=== PATIENT | female | born 1955 | race American Indian/Alaskan Native ===

== ENCOUNTER 2017-08-17 09:09 | Emergency (ER) | payer MEDICAID ==
[2017-08-17 10:41] LABS: BUN/Creatinine Ratio 17; Basophils # (Auto) 0.1 K/mm3 (0.0-0.1); Basophils % (Auto) 0.9 % (0.0-1.8); Blood Urea Nitrogen 10 mg/dL (7-17); Calcium 8.9 mg/dL (8.4-10.2); Eosinophils # (Auto) 0.1 K/mm3 (0.0-0.4); Hematocrit 51.9 % (30.3-42.9); Hemoglobin 17.7 gm/dl (10.1-14.3); Hemolysis Index 15; Lymphocytes # (Auto) 2.5 K/mm3 (1.2-5.4); Mean Corpuscular HGB Conc 34 % (30-34); Mean Corpuscular Hemoglobin 32 pg (28-32); Mean Corpuscular Volume 95 fl (79-97); Monocytes # (Auto) 0.5 K/mm3 (0.0-0.8); Monocytes % (Auto) 6.9 % (0.0-7.3); Platelet Count 210 K/mm3 (140-440); Red Blood Count 5.45 M/mm3 (3.65-5.03); Red Cell Distribution Width 14.7 % (13.2-15.2)
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
[2017-08-17] MEDS ORDERED: NORCO 5/325 PO ONE (16:37)
[2017-08-17 18:01] VITALS: BP 158/86
== END 2017-08-17 18:00 | disposition home or self-care (01) ==
LOC: ED 09:09
DX: S00.83XA Contusion of other part of head, initial encounter (principal); R51 Headache; J43.9 Emphysema, unspecified; J01.30 Acute sphenoidal sinusitis, unspecified; F17.200 Nicotine dependence, unspecified, uncomplicated; Z88.6 Allergy status to analgesic agent; Y08.89XA Assault by other specified means, initial encounter; Y93.89 Activity, other specified; Y92.89 Other specified places as the place of occurrence of the external cause; Y99.8 Other external cause status
CPT/HCPCS: 36415; 70450; 70486; 71250; 72125; 80048; 85025